=== PATIENT | female | born 2000 | race Two or more races ===

== ENCOUNTER 2020-10-17 21:24 | Emergency (ER) | payer MEDICAID, OTHER ==
[~2020-10-17] VITALS: Ht 154.9 cm; Wt 80.7 kg
[2020-10-17 23:01] VITALS: BP 107/62
[2020-10-17 23:17] LABS: Urine Bacteria FEW /hpf (None Seen); Urine Blood Negative /uL (Negative); Urine Mucus FEW (None Seen); Urine Specific Gravity 1.011 (1.001-1.035); Urine WBC 2 /hpf (0 - 5)
== END 2020-10-17 23:22 | disposition home or self-care (01) ==
LOC: ER 21:27
DX: B37.3 Candidiasis of vulva and vagina (principal); L29.2 Pruritus vulvae; N89.8 Other specified noninflammatory disorders of vagina
CPT/HCPCS: 81001

== ENCOUNTER 2022-12-02 00:13 | Inpatient (IN) | payer MEDICAID ==
[~2022-12-02] VITALS: Ht 154.9 cm; Wt 92.8 kg
[2022-12-02 01:39] LABS: Basophils # (auto) 0 10 ^3/uL (0-0.2); Eosinophils # (auto) 0.1 10 ^3/uL (0-0.8); Eosinophils % (auto) 0.6 % (0.0-7.0); Mean Corpuscular Volume 81.7 fL (80.0-100.0); Monocytes # (auto) 0.6 10 ^3/uL (0-1.3); White Blood Cell 9.1 10^3/uL (4.4-10.8)
[2022-12-02 01:40] LABS: Basophils % (auto) 0.5 % (0.0-2.0); Hematocrit 38.8 % (36.0-46.0); Hemoglobin 12.8 g/dL (12.2-16.2); Lymphocytes # (auto) 2.5 10 ^3/uL (0.4-5.4); Lymphocytes % (auto) 27.4 % (10.0-50.0); Mean Corpuscular Hgb Conc. 33.1 g/dL (32.0-36.0); Monocytes % (auto) 6.1 % (0.0-12.0); Neutrophils # (auto) 5.9 10 ^3/uL (1.6-8.6); Neutrophils % (auto) 65.4 % (37.0-80.0); Red Blood Cells 4.75 10^6/uL (4.0-5.20); Red Cell Distribution Width 15.2 % (11.8-14.3)
[2022-12-02 01:50] LABS: Albumin 3.8 g/dL (3.4-5.0); BUN/Creatinine Ratio 14.8; Calcium 9.7 mg/dL (8.5-10.1); Potassium 3.4 mmol/L (3.5-5.1)
[2022-12-02 01:52] LABS: Urine Bacteria NONE SEEN /hpf (None Seen); Urine Blood Negative /uL (Negative); Urine WBC <1 /hpf (0 - 5)
[2022-12-02 02:01] LABS: Bilirubin, Total 0.3 mg/dL (0.2-1.0); Total Protein 8.1 g/dL (6.4-8.2)
[2022-12-02] MEDS ORDERED: ACETAMINOPHEN 325 MG TAB PO PRN (04:30)
[2022-12-02] MEDS ORDERED: ONDANSETRON HCL 4 MG/2 ML VIAL IV PRN (04:30)
[2022-12-02] MEDS ORDERED: MAALOX PLUS or MAALOX 30 ML PO PRN (04:30)
[2022-12-02] MEDS ORDERED: MORPHINE SULFATE INJ 2 MG/ml SYRG IV PRN (04:30)
[2022-12-02] MEDS: SODIUM CHLORIDE 0.9% 1,000 ML IV SCH ×2 (06:50→21:10)
[2022-12-02] MEDS: metroNIDAZOLE 500MG/100ML 100 ML IV SCH ×3 (06:58→22:38)
[2022-12-02 07:26] LABS: Basophils # (auto) 0.1 10 ^3/uL (0-0.2); Basophils % (auto) 0.8 % (0.0-2.0); Eosinophils # (auto) 0.1 10 ^3/uL (0-0.8); Eosinophils % (auto) 0.8 % (0.0-7.0); Hemoglobin 12.4 g/dL (12.2-16.2); Lymphocytes # (auto) 2.2 10 ^3/uL (0.4-5.4); Lymphocytes % (auto) 33.5 % (10.0-50.0); Mean Corpuscular Hemoglobin 27.1 pg (28.0-32.0); Mean Corpuscular Hgb Conc. 33.5 g/dL (32.0-36.0); Mean Corpuscular Volume 81.1 fL (80.0-100.0); Monocytes # (auto) 0.4 10 ^3/uL (0-1.3); Monocytes % (auto) 5.8 % (0.0-12.0); Neutrophils # (auto) 3.8 10 ^3/uL (1.6-8.6); Neutrophils % (auto) 59.1 % (37.0-80.0); Red Blood Cells 4.56 10^6/uL (4.0-5.20); Red Cell Distribution Width 15.3 % (11.8-14.3); White Blood Cell 6.5 10^3/uL (4.4-10.8)
[2022-12-02 07:44] LABS: Calcium 8.9 mg/dL (8.5-10.1); Potassium 3.5 mmol/L (3.5-5.1)
[2022-12-02 09:02] LABS: INR 0.98 (0.9-1.15); Partial Thromboplastin Time 27.5 sec (24.6-33.4)
[2022-12-02 22:00] VITALS: BP 117/84
[2022-12-02] MEDS: LORazepam 0.5 MG TAB PO PRN (22:00)
[2022-12-03 05:00] VITALS: BP 104/59
[2022-12-03] MEDS: metroNIDAZOLE 500MG/100ML 100 ML IV SCH ×3 (06:20→21:48)
[2022-12-03 09:00] VITALS: BP 107/70
[2022-12-03] MEDS ORDERED: SUCCINYLCHOLINE CHLORIDE 20 MG/ML 10ML VIAL IV ONE (09:17)
[2022-12-03] MEDS ORDERED: ROCURONIUM 10MG/ML 10ML VIAL IV ONE ×2 (09:17→09:52)
[2022-12-03] MEDS ORDERED: DexAMETHasone SOD PHOS 10MG/1ML VIAL INJ ONE (09:52)
[2022-12-03] MEDS ORDERED: MEPERIDINE HCL (25 MG/ML) 1ML VIAL ONE (09:52)
[2022-12-03] MEDS ORDERED: fentaNYL CITRATE 100 MCG/2 ML VL ONE (09:52)
[2022-12-03] MEDS ORDERED: SODIUM CHLORIDE LOCK 10 ML ONE (09:52)
[2022-12-03] MEDS ORDERED: ONDANSETRON HCL 4 MG/2 ML VIAL ONE (09:52)
[2022-12-03] MEDS ORDERED: NEOSTIGMINE 1 MG/ML INJ (10mg/10ML VIAL) ONE (09:52)
[2022-12-03] MEDS ORDERED: GLYCOPYRROLATE 0.2 MG/ML 1ML VIAL ONE (09:52)
[2022-12-03] MEDS ORDERED: MIDAZOLAM HCL 2MG/2ML 2ml VIAL (1mg/ml) ONE (09:52)
[2022-12-03] MEDS ORDERED: ceFAZolin 1GM/50ML 100 ML IV ONE (10:27)
[2022-12-03] MEDS ORDERED: ONDANSETRON HCL 4 MG/2 ML VIAL IV PRN (10:45)
[2022-12-03] MEDS ORDERED: HYDROmorphone HCL 2 MG/ML VL/or syr IV PRN ×3 (10:45→11:00)
[2022-12-03] MEDS: D5W/SOD CHL 0.45%/KCL 20MEQ 1,000 ML IV SCH ×2 (10:45→23:51)
[2022-12-03] MEDS ORDERED: ACETAMINOPHEN/CODEINE#3 (300/30mg) TAB PO PRN (10:45)
[2022-12-03] MEDS ORDERED: METOCLOPRAMIDE HCL 5MG/ml INJ 2ml VIAL IV PRN (11:00)
[2022-12-03] MEDS ORDERED: MORPHINE SULFATE INJ 2 MG/ml SYRG IV PRN (11:00)
[2022-12-03] MEDS ORDERED: cefTRIAXone 1GM/50ML D5W 50 ML IV ONE (11:45)
[2022-12-03] MEDS ORDERED: LIDOCAINE W/ EPINEPHRINE 2% INJ 20ML VIAL ONE (12:48)
[2022-12-03] MEDS ORDERED: EPINEPHrine HCL 1 MG/10 ML SYRG ONE (12:49)
[2022-12-03] MEDS: ceFAZolin 1GM/50ML 50 ML IV SCH ×2 (15:48→22:55)
[2022-12-03 17:00] VITALS: BP_SYST 109; BP_SYST 157; BP_DIAS 64; BP_DIAS 92
[2022-12-03] MEDS: HYDROcodone-ACET 5/325MG TAB PO PRN (20:38)
[2022-12-03 22:00] VITALS: BP 121/73
[2022-12-04] MEDS: LORazepam 0.5 MG TAB PO PRN (00:39)
[2022-12-04] MEDS: metroNIDAZOLE 500MG/100ML 100 ML IV SCH ×2 (05:30→14:32)
[2022-12-04 06:35] LABS: Basophils # (auto) 0 10 ^3/uL (0-0.2); Basophils % (auto) 0.1 % (0.0-2.0); Eosinophils # (auto) 0 10 ^3/uL (0-0.8); Hemoglobin 11.4 g/dL (12.2-16.2); Lymphocytes # (auto) 1.1 10 ^3/uL (0.4-5.4); Lymphocytes % (auto) 11.8 % (10.0-50.0); Mean Corpuscular Hemoglobin 27.8 pg (28.0-32.0); Mean Corpuscular Hgb Conc. 34.4 g/dL (32.0-36.0); Mean Corpuscular Volume 80.7 fL (80.0-100.0); Monocytes # (auto) 0.5 10 ^3/uL (0-1.3); Monocytes % (auto) 5.2 % (0.0-12.0); Neutrophils # (auto) 7.9 10 ^3/uL (1.6-8.6); Neutrophils % (auto) 82.9 % (37.0-80.0); Red Blood Cells 4.09 10^6/uL (4.0-5.20); Red Cell Distribution Width 15.4 % (11.8-14.3); White Blood Cell 9.5 10^3/uL (4.4-10.8)
[2022-12-04] MEDS: ceFAZolin 1GM/50ML 50 ML IV SCH ×2 (07:00→14:32)
[2022-12-04 07:11] LABS: Calcium 8.8 mg/dL (8.5-10.1)
[2022-12-04 07:16] LABS: Albumin 3.3 g/dL (3.4-5.0); BUN/Creatinine Ratio 14.7; Total Protein 7.2 g/dL (6.4-8.2)
[2022-12-04 08:00] VITALS: BP 109/70
[2022-12-04] MEDS: HYDROcodone-ACET 5/325MG TAB PO PRN (08:50)
[2022-12-04 09:00] VITALS: BP 109/70
[2022-12-04] MEDS ORDERED: cefTRIAXone 1GM/50ML D5W 50 ML IV SCH (09:00)
[2022-12-04] MEDS ORDERED: PANTOPRAZOLE 40 MG/10 ML VIAL INJ IV SCH (10:00)
[2022-12-04] MEDS ORDERED: DOCU-94 PO (11:40)
[2022-12-04] MEDS ORDERED: TRAM50TA2 PO (11:40)
[2022-12-04] MEDS ORDERED: CEPH-510 PO (11:40)
[2022-12-04 13:00] VITALS: BP 110/74
[2022-12-04 14:50] VITALS: BP 106/88
[2022-12-04 17:27] VITALS: BP 116/72
== END 2022-12-04 17:38 | disposition home or self-care (01) | DRG 263 ==
LOC: ER 00:13 → OVERFLOW 04:21 → WEST WING 18:21
PROVIDERS: ADMIT Hospitalist; ATTEND Internal Medicine
PROC: 0FT44ZZ Resection of Gallbladder, Percutaneous Endoscopic Approach (ICD-10-PCS; principal; 2022-12-03 11:55)
DX: K80.00 Calculus of gallbladder with acute cholecystitis without obstruction (principal); K76.0 Fatty (change of) liver, not elsewhere classified; E66.01 Morbid (severe) obesity due to excess calories; Z20.822 Contact with and (suspected) exposure to COVID-19; Z68.38 Body mass index [BMI] 38.0-38.9, adult
CPT/HCPCS: 36415; 76705; 80048; 80053; 81001; 82150; 83690; 84702; 85025; 85610; 85730; 86850; 86900; 86901; 87426; 96360; C9113; G0378; J0330; J0690; J0696; J1100; J2250; J2405; J3490

== ENCOUNTER 2023-02-21 17:53 | Emergency (ER) | payer MEDICAID ==
[~2023-02-21] VITALS: Ht 154.9 cm; Wt 93.0 kg
[~2023-02-21 17:53] MED LIST: CEPH-510 PO; DOCU-94 PO; TRAM50TA2 PO
[2023-02-21 18:47] LABS: Basophils # (auto) 0.1 10 ^3/uL (0-0.2); Basophils % (auto) 0.7 % (0.0-2.0); Eosinophils # (auto) 0 10 ^3/uL (0-0.8); Eosinophils % (auto) 0.4 % (0.0-7.0); Hematocrit 38.1 % (36.0-46.0); Hemoglobin 12.8 g/dL (12.2-16.2); Lymphocytes # (auto) 2.2 10 ^3/uL (0.4-5.4); Lymphocytes % (auto) 28.9 % (10.0-50.0); Mean Corpuscular Hemoglobin 27.5 pg (28.0-32.0); Mean Corpuscular Hgb Conc. 33.5 g/dL (32.0-36.0); Monocytes # (auto) 0.5 10 ^3/uL (0-1.3); Monocytes % (auto) 5.9 % (0.0-12.0); Neutrophils # (auto) 4.9 10 ^3/uL (1.6-8.6); Neutrophils % (auto) 64.1 % (37.0-80.0); Nucleated Red Blood Cells % 0.1 %; Red Blood Cells 4.65 10^6/uL (4.0-5.20); Red Cell Distribution Width 16.1 % (11.8-14.3); White Blood Cell 7.7 10^3/uL (4.4-10.8)
[2023-02-21 18:58] LABS: Albumin 3.6 g/dL (3.4-5.0); Potassium 4.3 mmol/L (3.5-5.1)
[2023-02-21 19:02] LABS: BUN/Creatinine Ratio 28.8 (10.0-20.0); Bilirubin, Total 0.3 mg/dL (0.2-1.0); Total Protein 7.6 g/dL (6.4-8.2)
[2023-02-21 21:28] VITALS: BP 139/73
[2023-02-21] MEDS ORDERED: AZITTAB PO (22:41)
[2023-02-21] MEDS ORDERED: HYDR-5028 PO (22:41)
== END 2023-02-21 22:50 | disposition home or self-care (01) ==
LOC: ER 17:53
DX: R07.89 Other chest pain (principal); F41.9 Anxiety disorder, unspecified; H66.92 Otitis media, unspecified, left ear; R42 Dizziness and giddiness; Z90.49 Acquired absence of other specified parts of digestive tract; Z88.1 Allergy status to other antibiotic agents
CPT/HCPCS: 36415; 71046; 80053; 84484; 85025; 93005

== ENCOUNTER 2023-03-03 14:41 | Emergency (ER) | payer MEDICAID ==
[~2023-03-03] VITALS: Ht 154.9 cm; Wt 90.9 kg
[~2023-03-03 14:41] MED LIST changes: +AZITTAB PO; +HYDR-5028 PO
[2023-03-03 14:44] VITALS: BP 131/83
[2023-03-03 15:30] LABS: Basophils # (auto) 0 10 ^3/uL (0-0.2); Basophils % (auto) 0.6 % (0.0-2.0); Eosinophils # (auto) 0 10 ^3/uL (0-0.8); Eosinophils % (auto) 0.3 % (0.0-7.0); Hematocrit 37.3 % (36.0-46.0); Hemoglobin 12.3 g/dL (12.2-16.2); Lymphocytes % (auto) 34.6 % (10.0-50.0); Mean Corpuscular Hemoglobin 27.2 pg (28.0-32.0); Mean Corpuscular Hgb Conc. 32.9 g/dL (32.0-36.0); Mean Corpuscular Volume 82.5 fL (80.0-100.0); Monocytes # (auto) 0.4 10 ^3/uL (0-1.3); Monocytes % (auto) 6.5 % (0.0-12.0); Neutrophils # (auto) 3.3 10 ^3/uL (1.6-8.6); Nucleated Red Blood Cells % 0.1 %; Red Blood Cells 4.52 10^6/uL (4.0-5.20); Red Cell Distribution Width 15.1 % (11.8-14.3); White Blood Cell 5.7 10^3/uL (4.4-10.8)
[2023-03-03 15:43] LABS: Calcium 9.1 mg/dL (8.5-10.1); Potassium 3.5 mmol/L (3.5-5.1)
[2023-03-03 15:49] LABS: Albumin 3.6 g/dL (3.4-5.0); BUN/Creatinine Ratio 12.5 (10.0-20.0); Bilirubin, Total 0.7 mg/dL (0.2-1.0); Total Protein 7.4 g/dL (6.4-8.2)
[2023-03-03] MEDS ORDERED: PANT40TA2 PO (17:58)
[2023-03-03] MEDS ORDERED: LIDOCAINE VISCOUS 2% 15ML UD PO ONE (18:00)
[2023-03-03] MEDS ORDERED: DONNATAL 5ml ORAL Elix (BELLADONNA ALK-PHENOBARB) PO ONE (18:00)
[2023-03-03] MEDS ORDERED: MAALOX PLUS or MAALOX 30 ML PO ONE (18:00)
== END 2023-03-03 19:29 | disposition home or self-care (01) ==
LOC: ER 14:41
DX: K29.70 Gastritis, unspecified, without bleeding (principal); R10.2 Pelvic and perineal pain; Z90.49 Acquired absence of other specified parts of digestive tract; Z88.1 Allergy status to other antibiotic agents; Z79.899 Other long term (current) drug therapy
CPT/HCPCS: 36415; 80053; 83690; 84702; 85025

== ENCOUNTER 2023-03-17 20:26 | Emergency (ER) | payer MEDICAID ==
[~2023-03-17] VITALS: Ht 154.9 cm; Wt 90.0 kg
[~2023-03-17 20:26] MED LIST changes: +PANT40TA2 PO
[2023-03-17 20:43] VITALS: BP 122/75
[2023-03-18 00:37] LABS: Urine Bacteria MANY /hpf (None Seen); Urine Blood Negative /uL (Negative); Urine Mucus FEW (None Seen); Urine Specific Gravity 1.025 (1.001-1.035); Urine WBC 4 /hpf (0 - 5)
[2023-03-18] MEDS ORDERED: METR500T PO (16:32)
[2023-03-18] MEDS ORDERED: CEPH-510 PO (16:32)
== END 2023-03-18 00:41 | disposition left against medical advice (07) ==
LOC: ER 20:26
DX: R10.13 Epigastric pain (principal); Z53.21 Procedure and treatment not carried out due to patient leaving prior to being seen by health care provider
CPT/HCPCS: 81001; 81025

== ENCOUNTER 2023-03-18 09:08 | Emergency (ER) | payer MEDICAID ==
[~2023-03-18] VITALS: Ht 154.9 cm; Wt 88.6 kg
[2023-03-18 10:33] LABS: Basophils # (auto) 0 10 ^3/uL (0-0.2); Basophils % (auto) 0.5 % (0.0-2.0); Eosinophils # (auto) 0 10 ^3/uL (0-0.8); Eosinophils % (auto) 0.7 % (0.0-7.0); Hematocrit 37.9 % (36.0-46.0); Hemoglobin 12.6 g/dL (12.2-16.2); Lymphocytes # (auto) 1.1 10 ^3/uL (0.4-5.4); Mean Corpuscular Hemoglobin 27.2 pg (28.0-32.0); Mean Corpuscular Hgb Conc. 33.4 g/dL (32.0-36.0); Mean Corpuscular Volume 81.6 fL (80.0-100.0); Monocytes # (auto) 0.4 10 ^3/uL (0-1.3); Neutrophils # (auto) 2.7 10 ^3/uL (1.6-8.6); Neutrophils % (auto) 63.8 % (37.0-80.0); Red Blood Cells 4.64 10^6/uL (4.0-5.20); Red Cell Distribution Width 14.6 % (11.8-14.3); White Blood Cell 4.2 10^3/uL (4.4-10.8)
[2023-03-18 10:37] LABS: Urine Bacteria FEW /hpf (None Seen); Urine Blood Negative /uL (Negative); Urine Mucus FEW (None Seen); Urine Specific Gravity 1.027 (1.001-1.035); Urine WBC 3 /hpf (0 - 5)
[2023-03-18 11:32] LABS: Potassium 3.9 mmol/L (3.5-5.1)
[2023-03-18 11:37] LABS: Albumin 3.7 g/dL (3.4-5.0); BUN/Creatinine Ratio 16.7 (10.0-20.0); Calcium 9.6 mg/dL (8.5-10.1)
[2023-03-18 11:39] LABS: Bilirubin, Total 0.8 mg/dL (0.2-1.0); Total Protein 7.9 g/dL (6.4-8.2)
[2023-03-18] MEDS ORDERED: PANTOPRAZOLE 40 MG TAB PO ONE (11:45)
[2023-03-18] MEDS ORDERED: CEPH-510 PO (16:32)
[2023-03-18] MEDS ORDERED: METR500T PO (16:32)
[2023-03-18 17:03] VITALS: BP 113/63
== END 2023-03-18 17:05 | disposition home or self-care (01) ==
LOC: ER 09:08
DX: K52.9 Noninfective gastroenteritis and colitis, unspecified (principal); Z90.49 Acquired absence of other specified parts of digestive tract
CPT/HCPCS: 36415; 74176; 80053; 81001; 81025; 83690; 85025

== ENCOUNTER 2025-06-05 22:00 | Emergency (ER) | payer MEDICAID, OTHER ==
[~2025-06-05] VITALS: Ht 154.9 cm; Wt 72.6 kg
[~2025-06-05 22:00] MED LIST changes: +METR500T PO
[2025-06-05 22:35] LABS: Hematocrit 40.6 % (36.0-46.0); Hemoglobin 13.5 g/dL (12.2-16.2); Mean Corpuscular Hemoglobin 30.4 pg (28.0-32.0); Mean Corpuscular Volume 91.5 fL (80.0-100.0)
[2025-06-05 22:45] LABS: Potassium 3.8 mmol/L (3.5-5.1)
[2025-06-05 22:46] LABS: Anion Gap 10 (5-15); Calcium 9.7 mg/dL (8.7-10.4); Carbon Dioxide 30 mmol/L (20-31)
[2025-06-05 22:49] LABS: Chloride 107 mmol/L (98-107); Sodium 147 mmol/L (136-145)
[2025-06-05 22:51] LABS: BUN/Creatinine Ratio 8.5 (10.0-20.0); Blood Urea Nitrogen 5 mg/dL (9-23); Glucose 94 mg/dL (74-106)
[2025-06-05 23:08] LABS: Total Cells Counted 100.0 (100)
--- NOTE | 2025-06-05 23:41 | ED.PDOC ---
History of Present Illness HPI Comments This patient is a 25-year-old female who has been drinking excessively over the past few days who arrives to the ED today via EMS due to complaints of bilateral hand cramping for the past few hours. Patient states the cramping occurred and has been intermittent. Patient arrives highly intoxicated. Vital signs were stable. Chief Complaint: Upper Extremity Time Seen by MD: 22:07 Primary Care Provider: MOE Jain Notes: Nurses Notes, Parts Counter Clerk Notes Allergies: Coded Allergies: NO KNOWN ALLERGIES (Unverified , 10/17/20) Home Meds Active Scripts Cephalexin ( Keflex 500) 500 Mg Cap, 1 CAP PO TID for 5 Days, #15 CAP Prov:LA WHITTINGTON MD 03/18/23 Metronidazole (Flagyl) 500 Mg Tab, 500 MG PO TID for 5 Days, #15 TAB Prov:LA WHITTINGTON MD 03/18/23 Pantoprazole Sodium Sesquihydr (Protonix) 40 Mg Tab, 40 MG PO DAILY for 7 Days, #7 TAB Prov:LA WHITTINGTON MD 03/03/23 Azithromycin (Zithromax Z-El) 250 Mg Tab, 250 MG PO DAILY for 5 Days, #6 TAB Prov:SHELBIE SORENSON [employer] 02/21/23 Hydroxyzine HCl (Hydroxyzine Hydrochloride) 10 Mg Tab, 10 MG PO BID PRN for 6 Days, #12 TAB Prov:SHELBIE SORENSON [employer] 02/21/23 Tramadol Hcl (Tramadol Hcl) 50 Mg Tab, 50 MG PO TID PRN for 5 Days, #15 TAB Prov:CARMEN MARQUEZ MD 12/04/22 Docusate Sodium (Colace) 100 Mg Cap, 1 CAP PO BID PRN for 10 Days, #50 CAP Prov:CARMEN MARQUEZ MD 12/04/22 Cephalexin ( Keflex 500) 500 Mg Cap, 1 CAP PO TID for 5 Days, #15 CAP Prov:CARMEN MARQUEZ MD 12/04/22 Information Source: Patient, Emergency Med Personnel Mode of Arrival: EMS Severity: Moderate Timing: Hours Duration: Since onset Prehospital treatment: None Past Medical History PAST MEDICAL HISTORY: Denies Surgical History: Cholecystectomy EDUCATION REP History: No Pertinent EDUCATION REP History Family History Family History: Reviewed,noncontributory to illness, No family hx of Cancer, No family hx of DM, No family hx of Heart zoë, No family hx of HTN, No family hx ofKidney zoë, No family hx of Liver zoë, No family hx of Lung zoë, No family hx of Stroke Social History Smoker: Non-Smoker Alcohol: Heavy Drugs: Denies Drug Use Lives In: Home Constitutional: denies: chills, diaphoresis, fatigue, fever, malaise, sweats, weakness, others EENTM: denies: blurred vision, double vision, ear bleeding, ear discharge, ear drainage, ear pain, ear ringing, eye pain, eye redness, hearing loss, mouth pain, mouth swelling, nasal discharge, nose bleeding, nose congestion, nose pain, photophobia, tearing, throat pain, throat swelling, voice changes, others Respiratory: denies: cough, hemoptysis, orthopnea, SOB at rest, shortness of breath, SOB with excertion, stridor, wheezing, others Cardiovascular: denies: chest pain, dizzy spells, diaphoresis, Dyspnea on exertion, edema, irregular heart beat, left arm pain, lightheadedness, palpitations, PND, syncope, others Gastrointestinal: denies: abdomen distended, abdominal pain, blood streaked bowels, constipated, diarrhea, dysphagia, difficulty swallowing, hematemesis, melena, nausea, poor appetite, poor fluid intake, rectal bleeding, rectal pain, vomiting, others Genitourinary: denies: abnormal vagina bleeding, burning, dyspareunia, dysuria, flank pain, frequency, hematuria, incontinence, pain, , vagina discharge, urgency, others Neurological: denies: dizziness, fainting, headache, left sided numbness, left sided weakness, numbness, paresthesia, pre-existing deficit, right sided numbness, right sided weakness, seizure, speech problems, tingling, tremors, weakness, others Musculoskeletal: reports: others (Bilateral hand cramping); denies: back pain, gout, joint pain, joint swelling, muscle pain, muscle stiffness, neck pain Integumetry: denies: bruises, change in color, change in hair/nails, dryness, laceration, lesions, lumps, rash, wounds, others Allergic/Immunocompromised: denies: Difficulty Healing, Frequent Infections, Hives, Itching, others Hematologic/Lymphatic: denies: anemia, blood clots, easy bleeding, easy bruising, swollen glands, others Endocrine: denies: excessive hunger, excessive sweating, excessive thirst, excessive urination, flushing, intolerance to cold, intolerance to heat, unexplained weight gain, unexplained weight loss, others Psychiatric: denies: anxiety, bipolar disorder, depression, hopeless, panic disorder, schizophrenia, sleepless, suicidal, others Physical Exam General Appearance: Moderate Distress (Patient was highly intoxicated at arrival.), Obese HEENT: Normal ENT Inspection, Pharynx Normal, TMs Normal Neck: Full Range of Motion, Non-Tender, Normal, Normal Inspection Respiratory: Chest Non-Tender, Lungs Clear, No Accessory Muscle Use, No Respiratory Distress, Normal Breath Sounds Cardiovascular: No Edema, No JVD, No Murmur, No Gallop, Normal Peripheral Pulses, Regular Rate/Rhythm Breast Exam: Deferred Gastrointestinal: No Organomegaly, Non Tender, No Pulsatile Mass, Normal Bowel Sounds, Soft Genitalia: Deferred Pelvic: Deferred Rectal: Deferred Extremities: Other (Unremarkable evaluation of bilateral hands. No signs of trauma. No cramping noted.) Neurologic: Alert, No Motor Deficits, Normal Affect, Normal Mood, No Sensory Deficits Cerebellar Function: Normal Reflexes: Normal Skin: Dry, Normal Color, Warm Lymphatic: No Adenopathy Was a procedure done? Was a procedure done?: No Differential Dx Considerations may include: Electrolyte abnormality, alcohol intoxication X-Ray, Labs, Meds, VS Vital Signs Date Time Temp Pulse Resp B/P (MAP) Pulse Ox O2 Delivery O2 Flow Rate FiO2 06/05/25 22:05 98.5 92 20 128/73 (91) 97 98.5 Lab Test 06/05/25 22:19 Range/Units White Blood Count 4.2 L 4.4-10.8 10^3/uL Red Blood Count 4.43 4.0-5.20 10^6/uL Hemoglobin 13.5 12.2-16.2 g/dL Hematocrit 40.6 36.0-46.0 % Mean Corpuscular Volume 91.5 80.0-100.0 fL Mean Corpuscular Hemoglobin 30.4 28.0-32.0 pg Mean Corpuscular Hemoglobin Concent 33.2 32.0-36.0 g/dL Red Cell Distribution Width 14.3 11.8-14.3 % Platelet Count 239 140-450 10^3/uL Mean Platelet Volume 7.2 6.9-10.8 fL Neutrophils (%) (Auto) 37.0-80.0 % Lymphocytes (%) (Auto) 10.0-50.0 % Monocytes (%) (Auto) 0.0-12.0 % Basophils (%) (Auto) 0.0-2.0 % Neutrophils # (Auto) 1.6-8.6 10 ^3/uL Lymphocytes # (Auto) 0.4-5.4 10 ^3/uL Monocytes # (Auto) 0-1.3 10 ^3/uL Differential Total Cells Counted 100.0 100 Neutrophils % (Manual) 38 37.0-80.0 Band Neutrophils % (Manual) 0 Lymphocytes % (Manual) 56 H 10.0-50.0 Monocytes % (Manual) 5 0-12 Eosinophils % (Manual) 1 0-7 Basophils % (Manual) 0 0.0-2.0 Metamyelocytes % (manual) 0 Myelocytes % (Manual) 0 Promyelocytes % (Manual) 0 Blast Cells % (Manual) 0 Reactive Lymphocytes 0 Platelet Estimate Adequate Sodium Level 147 H 136-145 mmol/L Potassium Level 3.8 3.5-5.1 mmol/L Chloride Level 107 98-107 mmol/L Carbon Dioxide Level 30 20-31 mmol/L Anion Gap 10 5-15 Blood Urea Nitrogen 5 L 9-23 mg/dL Creatinine 0.59 0.550-1.02 mg/dL Glomerular Filtration Rate Calc 127 >90 mL/min BUN/Creatinine Ratio 8.5 L 10.0-20.0 Serum Glucose 94 74-106 mg/dL Calcium Level 9.7 8.7-10.4 mg/dL Plasma/Serum Blood Alcohol 307.7 H <10 mg/dL X-Ray, Labs, Meds, VS Comment All studies performed the ED were evaluated by me personally. Serum studies were unremarkable for any electrolyte imbalance. ETOH of 0.30. 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 Time of 1ST Reevaluation: 23:40 Reevaluation 1ST: Improved Consultation: PCP Patient Education/Counseling: Diagnosis, Treatment Family Education/Counseling: Diagnosis, Treatment SEPSIS Sepsis Screen Date sepsis recognized/suspect: Jun 05, 2025 Time Sepsis recognized/suspect: 2204 Recent Procedure: No On Antibiotic Therapy: No Respiratory Rate >20: No Heart Rate >90: No Temp<36 C (96.8 F) or >38.3 C: No SBP <90 or MAP <65 mmHG: No New Acute Mental Status Change: No Is the patient on CPAP, BIPAP,: No Physician Orders Sodium Chloride 0.9% (06/05/25 22:15) Vital Signs Date Time Temp Pulse Resp B/P (MAP) Pulse Ox O2 Delivery O2 Flow Rate FiO2 06/05/25 22:05 98.5 92 20 128/73 (91) 97 98.5 Laboratory Tests Test 06/05/25 22:19 White Blood Count 4.2 10^3/uL (4.4-10.8) L Departure 1 Departure Time of Disposition: 23:40 Impression: Primary Impression: Alcohol intoxication Additional Impression: Dehydration Disposition: HOME / SELF CARE / HOMELESS Condition: Stable Additional Instructions: Patient has been advised to practice good hydration over the next few days as well as good nutrition. If patient has an alcohol problem, it has been suggested her to follow up with a alcohol rehab facility such as . Discharged With: Self, Friend Critical Care Note Critical Care Time?: No Stability Stability form required: No Heart Score Heart Score: Heart Score Response (Comments) Value History N/A 0 EKG N/A 0 Age N/A 0 Risk Factors N/A 0 Troponin N/A 0 Total 0 ALONZO HILLIARD PAC Jun 05, 2025 23:41
[2025-06-06 01:43] VITALS: BP 112/55; TEMP 98
[2025-06-06] MEDS: THIAMINE 100mg/ml INJ (200mg/2ml VIAL) IV ONE (02:30)
[2025-06-06] MEDS: SODIUM CHLORIDE 0.9% 2,000 ML IV ONE (02:30)
[2025-06-06] MEDS: METOCLOPRAMIDE HCL 5MG/ml INJ 2ml VIAL IV ONE (02:30)
[2025-06-06] MEDS: ONDANSETRON HCL 4 MG/2 ML VIAL IV ONE (02:30)
[2025-06-06 02:39] VITALS: PULSE 81; RESP 14; O2SAT 99
== END 2025-06-06 02:41 | disposition home or self-care (01) ==
LOC: EDBD 22:00 → ER 22:00
DX: F10.129 Alcohol abuse with intoxication, unspecified (principal); E86.0 Dehydration; Z90.49 Acquired absence of other specified parts of digestive tract; Z79.899 Other long term (current) drug therapy; Y90.8 Blood alcohol level of 240 mg/100 ml or more
CPT/HCPCS: 36415; 80048; 80320; 85007; 85027